=== PATIENT | female | born 1980 | race Caucasian/White ===

== ENCOUNTER 2019-02-11 19:52 | Emergency (ER) | payer SELFPAY ==
[2019-02-11] MEDS ORDERED: predniSONE 20 MG TAB ONE (20:31)
== END 2019-02-11 20:50 | disposition home or self-care (01) ==
LOC: NAV ERS 19:52
DX: J20.9 Acute bronchitis, unspecified (principal); I10 Essential (primary) hypertension; F17.210 Nicotine dependence, cigarettes, uncomplicated
CPT/HCPCS: 93005; 94760; J7512

== ENCOUNTER 2019-02-15 22:14 | Emergency (ER) | payer SELFPAY ==
[2019-02-15] MEDS ORDERED: Ketorolac Tromethamine 60 MG/2 ML VIAL ONE (22:40)
[2019-02-15] MEDS ORDERED: Acetaminophen 500 MG TAB ONE (22:40)
[2019-02-15] MEDS ORDERED: predniSONE 20 MG TAB ONE (22:45)
== END 2019-02-15 23:01 | disposition home or self-care (01) ==
LOC: NAV ERS 22:14
DX: J20.9 Acute bronchitis, unspecified (principal); I10 Essential (primary) hypertension; F17.210 Nicotine dependence, cigarettes, uncomplicated
CPT/HCPCS: 96372; J1885; J7512